=== PATIENT | female | born 1955 | race Caucasian/White ===

== ENCOUNTER 2016-11-28 09:44 | Day surgery (SDC) | payer OTHER ==
--- NOTE | 2016-11-28 11:59 | Operative Note ---
Colonoscopy ([facility]) Procedure date: 11/28/16 Date of : 55 Procedure:Colonoscopy Colonoscopy with cold snare polypectomy Indications: Mrs. Luke is a 61-year-old female who is here for third screening colonoscopy. The patient's last colonoscopy was July 2011 at which time she had a single diminutive polyp (tubular adenoma) which was removed. The patient reports no abdominal pain, weight loss, change in her bowel habits or rectal bleeding. She reports no family history of colon cancer. Performing Provider: Deena Russo MD Referrring Provider: Consuelo Alonzo M.D./Mariola Khan M.D. Sedation: Fentanyl 200 mg IV/Versed 11 mg IV Procedure: Prior to the procedure, a history and physical exam was performed, and patient medications and allergies were reviewed. The risks and benefits of the procedure and the sedation options and risks were discussed with the patient. All questions were answered and informed consent was obtained. Patient identification and proposed procedure were verified by the physician and the nurse. The patient was placed in a left lateral decubitus position. Throughout the procedure, the patient's blood pressure, pulse, and oxygen saturations were monitored continuously. Findings: On digital rectal examination there was normal rectal tone. There were no external hemorrhoids. The colonoscope was introduced through the anal canal to the rectum and advanced to the cecum. The ileocecal valve and appendiceal orifice were identified. The scope was advanced a short distance into the ileum which appeared grossly normal. The scope was then withdrawn into the colon. There were 2 colon polyps identified in the ascending 1 and descending 1. These ranged in size from 5-6 mm and were all removed via cold snare polypectomy. The remaining cecum, ascending, transverse, descending, sigmoid and rectum were grossly normal. There were no other mucosal abnormalities identified. Upon retroflexion within the rectum there were grade 1 internal hemorrhoids. Impressions: 1. Colonic polyps 2 2. Grade 1 internal hemorrhoids Recommendations: I will follow up the polyp pathology and recommend repeat colonoscopy again in 5 years based upon the polyp histology. I would encourage fiber supplementation on a long-term daily maintenance basis. Complications: None EBL (ml): 0 at 1158
[2016-11-28 13:42] VITALS: BP 121/73
== END 2016-11-28 12:47 | disposition home or self-care (01) ==
LOC: SDC 09:44
PROVIDERS: Internal Medicine Gastroenterology
PROC: 0DBM8ZX Excision of Descending Colon, Via Natural or Artificial Opening Endoscopic, Diagnostic (ICD-10-PCS; 2016-11-28)
PROC: 0DBK8ZX Excision of Ascending Colon, Via Natural or Artificial Opening Endoscopic, Diagnostic (ICD-10-PCS; principal; 2016-11-28 11:00)
DX: Z12.11 Encounter for screening for malignant neoplasm of colon (principal); Z86.010 Personal history of colon polyps; K64.0 First degree hemorrhoids; Z79.899 Other long term (current) drug therapy; D12.2 Benign neoplasm of ascending colon; D12.4 Benign neoplasm of descending colon